=== PATIENT | female | born 2000 | race Caucasian/White ===

== ENCOUNTER 2019-06-19 19:52 | Emergency (ER) | payer OTHER ==
[~2019-06-19] VITALS: Ht 167.6 cm; Wt 84.0 kg
[2019-06-19] MEDS ORDERED: normal saline 1000ML IV soln IVB ONE (20:00)
[2019-06-19] MEDS ORDERED: ketamine 10mg/ml 20ml inj IV ONE (20:00)
[2019-06-19] MEDS ORDERED: fentaNYL/PF 50MCG/1 ML 2ML syringe IV ONE ×3 (20:00→21:15)
[2019-06-19] MEDS ORDERED: ketamine 50 mg/ml 10ml vial IV ONE (20:25)
[2019-06-19] MEDS ORDERED: ondansetron/PF 4mg/2ml inj IV ONE ×3 (20:40→22:40)
[2019-06-19] MEDS ORDERED: ketorolac trometh. 30mg/ml inj. IV ONE (20:40)
[2019-06-19] MEDS ORDERED: oxyCODONE/APAP 5-325mg tablet PO ONE (21:25)
[2019-06-19] MEDS ORDERED: HYDR-4383 PO (21:55)
[2019-06-19] MEDS ORDERED: ONDA4TAB6 PO (21:55)
[2019-06-19] MEDS ORDERED: HYDR15SO7 PO (22:34)
[2019-06-19] MEDS ORDERED: scopolamine 1.5mg patch.TD72 TD ONE (23:25)
[2019-06-19 23:42] VITALS: BP 107/50
== END 2019-06-19 23:46 | disposition home or self-care (01) ==
LOC: ER 19:53
DX: S82.852A Displaced trimalleolar fracture of left lower leg, initial encounter for closed fracture (principal); Z79.899 Other long term (current) drug therapy; W18.39XA Other fall on same level, initial encounter; Y93.89 Activity, other specified; Y92.89 Other specified places as the place of occurrence of the external cause; Y99.8 Other external cause status
CPT/HCPCS: 27818; 73600; 96374; 96375; 96376; 99152; 99291; J1885; J2405; J3010; J7030